=== PATIENT | female | born 1955 | race Caucasian/White ===

== ENCOUNTER 2017-05-28 12:35 | Inpatient (IN) | payer BC ==
[2017-05-28] MEDS ORDERED: NITROGLYCERIN SUBLINGUAL 0.4 MG BOTTLE OF 25. SL (13:45)
[2017-05-28] MEDS: POTASSIUM CHLORIDE 20 MEQ TABLET.ER. PO (14:00)
[2017-05-28] MEDS: LOSARTAN POTASSIUM 50 MG TABLET. PO (14:00)
[2017-05-28] MEDS: hydroCHLOROthiazide 25 MG TABLET PO (14:00)
[2017-05-28 14:54] LABS: ADD MAN DIFF? NO
[2017-05-28 15:04] LABS: BASO # 0.1 x10^3/uL (0.0-0.2); BASO % 1 % (0-3); EOS # 0.2 x10^3/uL (0.0-0.7); EOS % 2 % (0-3); HEMATOCRIT 32.2 % (36.0-47.0); LYMPH # 1.8 x10^3/uL (1.0-4.8); LYMPH % 24 % (24-48); MEAN CORPUSCULAR HEMOGLOBIN 29 pg (25-35); MEAN CORPUSCULAR HGB CONC 34 g/dL (31-37); MEAN CORPUSCULAR VOLUME 84 fL (79-100); MONO # 0.5 x10^3/uL (0.0-1.1); MONO % 7 % (0-9); NEUT % 66 % (31-73); PLATELET COUNT 221 x10^3/uL (140-400); RED BLOOD COUNT 3.83 x10^6/uL (3.50-5.40); RED CELL DISTRIBUTION WIDTH 13.7 % (11.5-14.5); WHITE BLOOD COUNT 7.6 x10^3/uL (4.0-11.0)
[2017-05-28 15:14] LABS: TROPONINI < 0.017 ng/mL (0.000-0.055)
[2017-05-28 15:20] LABS: ANION GAP 12 (6-14); BLOOD UREA NITROGEN 27 mg/dL (7-20); CARBON DIOXIDE 26 mmol/L (21-32); CHLORIDE 103 mmol/L (98-107); CREATININE 1.3 mg/dL (0.6-1.0); GFR 41.5; GLUCOSE 98 mg/dL (70-99); POTASSIUM 4.1 mmol/L (3.5-5.1); SODIUM 141 mmol/L (136-145)
[2017-05-28] MEDS ORDERED: NON FORMULARY ITEM (Sitagliptin Phos/Metformin Hcl (Janumet 50-1,000 Mg Tablet) 1 EACH) PO (16:30)
[2017-05-28] MEDS: ASPIRIN CHEWABLE 81 MG TABLET. PO (17:35)
[2017-05-28] MEDS: LINAGLIPTIN 5 MG TABLET PO (17:35)
[2017-05-28] MEDS: VERAPAMIL IV (17:35)
[2017-05-28 19:25] LABS: TROPONINI < 0.017 ng/mL (0.000-0.055)
[2017-05-28 20:23] LABS: BILIRUBIN,URINE NEGATIVE (NEG); CLARITY,URINE CLEAR; COLOR,URINE YELLOW; GLUCOSE,URINE NEGATIVE (NEG); NITRITE,URINE NEGATIVE (NEG); PROTEIN,URINE NEGATIVE (NEG-TRACE); UROBILINOGEN,URINE 0.2 mg/dL (0.2 mg/dL)
[2017-05-28 20:26] LABS: BACTERIA,URINE 0 /HPF (0-FEW); RBC,URINE 0 /HPF (0-2); SQUAMOUS EPITHELIAL CELL,UR FEW /LPF; WBC,URINE OCC /HPF (0-4)
[2017-05-28] MEDS: FENOFIBRATE,MICRONIZED 134 MG CAPSULE PO (20:39)
[2017-05-28] MEDS: DULoxetine HCL 30 MG CAPSULE.DR PO (20:39)
[2017-05-28] MEDS: GABAPENTIN 300 MG CAPSULE. PO (20:40)
[2017-05-28] MEDS: METOPROLOL TART IMMED RELEASE 50 MG TABLET. PO (20:40)
[2017-05-28 22:35] LABS: TROPONINI < 0.017 ng/mL (0.000-0.055)
[2017-05-29] MEDS: METOPROLOL TART IMMED RELEASE 50 MG TABLET. PO (09:00)
[2017-05-29] MEDS: GABAPENTIN 300 MG CAPSULE. PO (09:00)
[2017-05-29] MEDS: hydroCHLOROthiazide 25 MG TABLET PO ×2 (09:01→15:46)
[2017-05-29] MEDS: POTASSIUM CHLORIDE 20 MEQ TABLET.ER. PO (09:01)
[2017-05-29] MEDS: LOSARTAN POTASSIUM 50 MG TABLET. PO (09:01)
[2017-05-29] MEDS: ASPIRIN CHEWABLE 81 MG TABLET. PO (09:01)
[2017-05-29] MEDS: LINAGLIPTIN 5 MG TABLET PO ×2 (09:03→15:46)
[2017-05-29] MEDS ORDERED: IODIXANOL 320 MG/ML 100 ML VIAL. (12:45)
[2017-05-29] MEDS ORDERED: HEPARIN for ARTERIAL LINE 1,500 ML (12:46)
[2017-05-29] MEDS ORDERED: LIDOCAINE 1% Multi-Dose 20 ML VIAL. (12:46)
[2017-05-29] MEDS ORDERED: fentaNYL PF VIAL 100 MCG/2 ML VIAL (13:04)
[2017-05-29] MEDS ORDERED: MIDAZOLAM HCL/PF 2 MG/2 ML VIAL. (13:05)
[2017-05-29] MEDS ORDERED: VERAPAMIL 5 MG/2 ML VIAL. (13:17)
[2017-05-29] MEDS ORDERED: HEPARIN for IV BOLUS 10,000 UNIT/10 ML VIAL. (13:17)
[2017-05-29] MEDS ORDERED: CONTRAST GIVEN MC (13:30)
[2017-05-29] MEDS: LIDOCAINE 1% PF 2 ML VIAL. INJ (13:30)
[2017-05-29] MEDS: NITROGLYCERIN 200 MCG/2 ML SYRINGE FOR CATH/VASC LAB. IART (13:33)
[2017-05-29] MEDS: IODIXANOL 320 MG/ML 100 ML VIAL. IART (13:33)
[2017-05-29] MEDS: VERAPAMIL 5 MG/2 ML VIAL. IART (13:34)
[2017-05-29] MEDS: fentaNYL PF VIAL 100 MCG/2 ML VIAL IV (13:36)
[2017-05-29] MEDS: MIDAZOLAM HCL/PF 2 MG/2 ML VIAL. IV (13:37)
[2017-05-29] MEDS: HEPARIN for IV BOLUS 10,000 UNIT/10 ML VIAL. IART (13:37)
[2017-05-29] MEDS: ACETAMINOPHEN 325 MG TABLET. PO (16:13)
== END 2017-05-29 18:45 | disposition home or self-care (01) | DRG 287 ==
LOC: 2 SOUTH 12:35
PROC: 4A023N7 Measurement of Cardiac Sampling and Pressure, Left Heart, Percutaneous Approach (ICD-10-PCS; principal; 2017-05-28)
PROC: B2151ZZ Fluoroscopy of Left Heart using Low Osmolar Contrast (ICD-10-PCS; 2017-05-28)
PROC: B2111ZZ Fluoroscopy of Multiple Coronary Arteries using Low Osmolar Contrast (ICD-10-PCS; 2017-05-28)
DX: R07.9 Chest pain, unspecified (principal); E11.9 Type 2 diabetes mellitus without complications; E66.9 Obesity, unspecified; G47.33 Obstructive sleep apnea (adult) (pediatric); I10 Essential (primary) hypertension; M19.90 Unspecified osteoarthritis, unspecified site; Z68.37 Body mass index [BMI] 37.0-37.9, adult; Z88.2 Allergy status to sulfonamides; Z88.8 Allergy status to other drugs, medicaments and biological substances; Z82.49 Family history of ischemic heart disease and other diseases of the circulatory system
CPT/HCPCS: 36415; 80048; 81001; 84484; 85025; 93005; 93306; 93458; 99152; 99153; C1769; C1892; J1644; J2250; J3010; J3490

== ENCOUNTER 2019-12-20 08:58 | Emergency (ER) | payer MEDICARE ==
[~2019-12-20] VITALS: Ht 167.6 cm; Wt 105.0 kg
[~2019-12-20 08:58] MED LIST: BYSTOLIC10 MG PO; CYCL10TA2 PO; DICL75TA PO; DILT180C29 PO; DULO60CA6 PO; ESTR0.3T PO; FENO145T3 PO; GABA300C18 PO; HYDR50TA6 PO; LOSA100T14 PO; MULT-246 PO; OXYC1TAB15 PO; POTA20TA12 PO; SITA1TAB11 PO; TERA10CA3 PO; TRAM50TA PO; WARF3TAB50 PO; WARF5TAB2 PO
--- NOTE | 2019-12-20 09:37 | PHYS DOC ---
Past Medical History Smoking Status: Never Smoker General Adult EDM: Chief Complaint: WEAKNESS/GENERALIZED HPI: HPI: The history was obtained from the patient. Patient is a 64-year-old female with PMH hypertension, diabetes who presents with a chief complaint of right posterior neck pain. Patient states 5 days ago she began developing intermittent sharp and shooting right posterior neck pain. States the pain started in the posterior neck and radiate up behind her ear. She states that nothing seems to make the pain worse. She did try hydrocodone at home from her with some relief. She states she did follow-up with her primary care physician twice. She states that basic labs were obtained they were unremarkable. She states that her family physician prescribed doxycycline because he was suspicious this could be infection related. She has been taking this. She states she has felt somewhat of a palpable lump in her posterior right neck. She states that her granddaughter checked the area and thought it looked slightly red. Patient denies any IV drug use history. Denies any MRSA history. Denies any unexplained weight loss. She notes today that her head pain has improved significantly but she has some mild soreness to her right shoulder. Denies any acute vision or hearing changes. Denies any dysarthria or confusion. Denies headache. Denies vomiting. Denies chest pain or shortness of breath. No other complaints. Review of Systems: Review of Systems: Constitutional: Denies fever or chills. [] Eyes: Denies change in visual acuity. [] HENT: Denies nasal congestion or sore throat. [] Respiratory: Denies cough or shortness of breath. [] Cardiovascular: Denies chest pain or edema. [] GI: Denies abdominal pain, nausea, vomiting, bloody stools or diarrhea. [] : Denies dysuria. [] Musculoskeletal: Denies back pain or joint pain. [] Integument: Denies rash. [] Neurologic: Positive for headache and neck pain Endocrine: Denies polyuria or polydipsia. [] Lymphatic: Denies swollen glands. [] Psychiatric: Denies depression or anxiety. [] Heart Score: Risk Factors: Risk Factors: DM, Current or recent (<one month) smoker, HTN, HLP, family history of CAD, obesity. Risk Scores: Score 0 - 3: 2.5% MACE over next 6 weeks - Discharge Home Score 4 - 6: 20.3% MACE over next 6 weeks - Admit for Clinical Observation Score 7 - 10: 72.7% MACE over next 6 weeks - Early Invasive Strategies Allergies: Allergies: Allergies Coded Allergies Type Severity Reaction Last Updated Verified Sulfa (Sulfonamide Antibiotics) Allergy Severe angioedema 12/20/19 Yes codeine Adverse Reaction Severe palpitations 12/20/19 Yes Physical Exam: PE: Constitutional: Well developed, well nourished, no acute distress, non-toxic appearance. [] HENT: Normocephalic, atraumatic, bilateral external ears normal, oropharynx moist, no oral exudates, nose normal. [] Eyes: PERRLA, EOMI, conjunctiva normal, no discharge. [] Neck: Normal range of motion, no tenderness, supple, no stridor. Slightly erythematous patches noted to the posterior neck. 0.5 x 0.5 cm palpable mobile nodule. [] Cardiovascular:Heart rate regular rhythm, no murmur [] Lungs & Thorax: Bilateral breath sounds clear to auscultation [] Abdomen: soft, no tenderness, no masses, no pulsatile masses. [] Skin: Warm, dry, no erythema, no rash. [] Back: No tenderness, no CVA tenderness. [] Extremities: No tenderness, no cyanosis, no clubbing, ROM intact, no edema. [] Neurologic: Alert with intact cognitive function. No aphasia, dysarthria, or neglect. GCS 15. Pupils 3 mm briskly reactive b/l. No APD present. Cranial nerves 2-12 grossly intact; no facial asymmetry present, tongue midline, shoulder shrugging strength intact. Strength 5/5 and symmetric throughout. Light touch sensation intact throughout. Cerebellar testing appropriate without evidence of dysdiadochokinesia. DTR's 2+ in all 4 extremities. Negative pronator drift bilaterally. Gait normal Psychologic: Affect normal, judgement normal, mood normal. [] Current Patient Data: Labs: Laboratory Tests Test 12/20/19 09:42 White Blood Count 6.6 x10^3/uL Red Blood Count 3.77 x10^6/uL Hemoglobin 10.8 g/dL Hematocrit 32.2 % Mean Corpuscular Volume 85 fL Mean Corpuscular Hemoglobin 29 pg Mean Corpuscular Hemoglobin Concent 34 g/dL Red Cell Distribution Width 13.1 % Platelet Count 253 x10^3/uL Neutrophils (%) (Auto) 64 % Lymphocytes (%) (Auto) 24 % Monocytes (%) (Auto) 7 % Eosinophils (%) (Auto) 4 % Basophils (%) (Auto) 1 % Neutrophils # (Auto) 4.2 x10^3/uL Lymphocytes # (Auto) 1.6 x10^3/uL Monocytes # (Auto) 0.5 x10^3/uL Eosinophils # (Auto) 0.3 x10^3/uL Basophils # (Auto) 0.1 x10^3/uL Sodium Level 135 mmol/L Potassium Level 4.3 mmol/L Chloride Level 101 mmol/L Carbon Dioxide Level 28 mmol/L Anion Gap 6 Blood Urea Nitrogen 24 mg/dL Creatinine 1.2 mg/dL Estimated GFR (Cockcroft-Gault) 45.1 Glucose Level 131 mg/dL Calcium Level 8.9 mg/dL Vital Signs: Vital Signs Date Time Temp Pulse Resp B/P (MAP) Pulse Ox O2 Delivery O2 Flow Rate FiO2 12/20/19 09:05 98.3 74 20 176/84 (114) 94 Room Air 98.3 EKG: EKG: [] Radiology/Procedures: Radiology/Procedures: [facility] [address] [place], [place] [id number] IMAGING REPORT Signed PATIENT: MACK ALBERT ACCOUNT: [id number] : 1955 LOCATION: ER AGE: 64 SEX: F EXAM STATUS: REG ER ORD. PHYSICIAN: FRANCES REID DO REASON: R soft tissue clavicular pain PROCEDURE: CHEST AP ONLY AP portable chest 12/20/2019. Reason for exam: Right-sided pain. Comparison is made with a study of 06/07/2015. Some linear scarring or atelectasis is seen in the mid left lung. No new infiltrate or effusion is evident. The heart may be mildly enlarged, but appears unchanged. Pulmonary vascularity is not congested. There is no obvious soft tissue mass or bone destruction. IMPRESSION: No acute cardiopulmonary disease. Electronically signed by: Nick Echeverria Jr., MD (12/20/2019 9:59 AM) [id number] DICTATED and SIGNED BY: NICK ECHEVERRIA Jr, MD DATE: 12/20/19 0959 [] Course & Med Decision Making: Course & Med Decision Making Pertinent Labs and Imaging studies reviewed. (See chart for details) [] Patient is a well-appearing 64-year-old female who presents with chief complaint of right sided neck pain intermittent over the past several days as well as a palpable nodule. Initial vital signs unremarkable. Examination overall reassuring. Firm mobile nodule palpated in the posterior right lateral neck. Mild overlying erythematous skin changes potentially consistent with fol liculitis. Chest x-ray imaging nonacute. Labs been overall unremarkable. Very low suspicion for deep space infection. She is forage motion of her head neck without difficulty. No signs of fever or toxicity. Advanced CT imaging will be deferred. She does state that her symptoms do appear to be improving. I do feel overall is reasonable to discharge patient home with close outpatient follow-up. I encouraged her to continue to take her doxycycline. She will be prescribed Flexeril and lidocaine as her could be a musculoskeletal and soft tissue component to her symptoms. On repeat examination her exam remains unchanged. No focal neurologic deficits appreciated. No audible bruits noted. Return precautions discussed and understood. Patient and both agreeable to this plan. Stable for discharge home. Dragon Disclaimer: Dragon Disclaimer: This electronic medical record was generated, in whole or in part, using a voice recognition dictation system. Departure Departure Impression: Primary Impression: Neck pain Additional Impression: Nodule of neck Disposition: HOME, SELF-CARE Condition: STABLE Referrals: VELVET DIAS MD (PCP) Patient Instructions: General Headache Without Cause Scripts Cyclobenzaprine Hcl (CYCLOBENZAPRINE HCL) 5 Mg Tablet 5 MG PO PRN TID PRN for PAIN for 5 Days, #15 TAB Prov: FRANCES REID DO 12/20/19 Lidocaine (Lido Walt) 1 Each Adh..patch 1 EACH TP DAILY for 5 Days, #5 PATCH 12 hours on and 12 hours off Prov: FRANCES REID DO 12/20/19 Justicifation of Admission Dx: Justifications for Admission: Justification of Admission Dx: N/A FRANCES REID DO Dec 20, 2019 09:37
[2019-12-20 09:50] LABS: BASO # 0.1 x10^3/uL (0.0-0.2); BASO % 1 % (0-3); EOS # 0.3 x10^3/uL (0.0-0.7); EOS % 4 % (0-3); HEMATOCRIT 32.2 % (36.0-47.0); HEMOGLOBIN 10.8 g/dL (12.0-15.5); LYMPH # 1.6 x10^3/uL (1.0-4.8); LYMPH % 24 % (24-48); MEAN CORPUSCULAR HEMOGLOBIN 29 pg (25-35); MEAN CORPUSCULAR HGB CONC 34 g/dL (31-37); MEAN CORPUSCULAR VOLUME 85 fL (79-100); MONO # 0.5 x10^3/uL (0.0-1.1); MONO % 7 % (0-9); NEUT # 4.2 x10^3/uL (1.8-7.7); NEUT % 64 % (31-73); PLATELET COUNT 253 x10^3/uL (140-400); RED BLOOD COUNT 3.77 x10^6/uL (3.50-5.40); RED CELL DISTRIBUTION WIDTH 13.1 % (11.5-14.5); WHITE BLOOD COUNT 6.6 x10^3/uL (4.0-11.0)
--- NOTE | 2019-12-20 10:02 | RAD ---
AP portable chest 12/20/2019. Reason for exam: Right-sided pain. Comparison is made with a study of 06/07/2015. Some linear scarring or atelectasis is seen in the mid left lung. No new infiltrate or effusion is evident. The heart may be mildly enlarged, but appears unchanged. Pulmonary vascularity is not congested. There is no obvious soft tissue mass or bone destruction. IMPRESSION: No acute cardiopulmonary disease. Electronically signed by: Nash Echeverria Jr., MD (12/20/2019 9:59 AM) [id number]
[2019-12-20 10:06] LABS: CALCIUM 8.9 mg/dL (8.5-10.1); CREATININE 1.2 mg/dL (0.6-1.0); GFR 45.1; POTASSIUM 4.3 mmol/L (3.5-5.1)
[2019-12-20 10:16] VITALS: BP 164/80
[2019-12-20] MEDS ORDERED: CYCL5TAB PO (10:34)
[2019-12-20] MEDS ORDERED: LIDO1ADH78 TP (10:34)
== END 2019-12-20 10:36 | disposition home or self-care (01) ==
LOC: ER 08:58
DX: M54.2 Cervicalgia (principal); R22.1 Localized swelling, mass and lump, neck; R51 Headache; Z88.2 Allergy status to sulfonamides; Z88.5 Allergy status to narcotic agent
CPT/HCPCS: 36415; 71045; 80048; 85025; 99284

== ENCOUNTER 2020-12-28 19:48 | Emergency (ER) | payer MEDICARE ==
[~2020-12-28] VITALS: Ht 167.6 cm; Wt 112.0 kg
[~2020-12-28 19:48] MED LIST changes: +CYCL5TAB PO; -DULO60CA6 PO; +DULO60CA7 PO; -HYDR50TA6 PO; +HYDR50TA9 PO; +LIDO1ADH78 TP
[2020-12-28 22:45] VITALS: BP 203/88
--- NOTE | 2020-12-28 22:47 | PHYS DOC ---
Past Medical History Past Medical History: Diabetes-Type II, High Cholesterol, Hypertension, Other Additional Past Medical Histor: DONNY, neuropathy (MARGARITA AGARWAL APRN) Past Surgical History: Hysterectomy, Other Additional Past Surgical Histo: sinus surgery (MARGARITA AGARWAL APRN) Smoking Status: Never Smoker Alcohol Use: Rarely (MARGARITA AGARWAL APRN) General Adult EDM: Chief Complaint: MECHANICAL FALL HPI: HPI: Patient is a 65 year old female who presents after a fall in her front yard this morning. Patient states "I was walking in the yard when I twisted my left ankle". Patient denies taking anything for pain. Patient still has full range of motion. Denies any other injury. (MARGARITA AGARWAL APRN) Review of Systems: Review of Systems: ROS At least 10 ROS systems have been reviewed and are negative except as documented in the HPI. General: Negative except as outlined in HPI above. Skin: Negative except as outlined in HPI above. HEENT: Negative except as outlined in HPI above. Neck: Negative except as outlined in HPI above. Respiratory: Negative except as outlined in HPI above.. Cardiovascular: Negative except as outlined in HPI above. Abdomen: Negative except as outlined in HPI above. : Negative except as outlined in HPI above. Back/MSK: Negative except as outlined in HPI above. Neuro: Negative except as outlined in HPI above. Psych: Negative except as outlined in HPI above. (MARGARITA AGARWAL APRN) Heart Score: C/O Chest Pain: No Risk Factors: Risk Factors: DM, Current or recent (<one month) smoker, HTN, HLP, family history of CAD, obesity. Risk Scores: Score 0 - 3: 2.5% MACE over next 6 weeks - Discharge Home Score 4 - 6: 20.3% MACE over next 6 weeks - Admit for Clinical Observation Score 7 - 10: 72.7% MACE over next 6 weeks - Early Invasive Strategies (MARGARITA AGARWAL APRN) Allergies: Allergies: Allergies Coded Allergies Type Severity Reaction Last Updated Verified Sulfa (Sulfonamide Antibiotics) Allergy Severe angioedema 12/20/19 Yes codeine Adverse Reaction Severe palpitations 12/20/19 Yes (MARGARITA AGARWAL APRN) Physical Exam: PE: Constitutional: Well developed, well nourished, no acute distress, non-toxic appearance. [] HENT: Normocephalic, atraumatic, bilateral external ears normal, oropharynx moist, no oral exudates, nose normal. [] Eyes: PERRLA, EOMI, conjunctiva normal, no discharge. [] Neck: Normal range of motion, no tenderness, supple, no stridor. [] Cardiovascular:Heart rate regular rhythm, no murmur [] Lungs & Thorax: Bilateral breath sounds clear to auscultation [] Abdomen: Bowel sounds normal, soft, no tenderness, no masses, no pulsatile masses. [] Skin: Warm, dry, no erythema, no rash. [] Back: No tenderness, no CVA tenderness. [] Extremities: Left ankle tenderness, ROM intact, swelling Neurologic: Alert and oriented X 3, normal motor function, normal sensory function, no focal deficits noted. [] Psychologic: Affect normal, judgement normal, mood normal. [] (MARGARITA AGARWAL APRN) Current Patient Data: Vital Signs: Vital Signs Date Time Temp Pulse Resp B/P (MAP) Pulse Ox O2 Delivery O2 Flow Rate FiO2 12/28/20 22:45 99.1 75 16 203/88 (126) 97 Room Air 99.1 (MOODY OLGUIN DO) EKG: EKG: [] (MARGARITA AGARWAL APRN) Radiology/Procedures: Radiology/Procedures: []Three-view left foot and three-view left ankle dated 12/28/2020. No comparison available. CLINICAL INDICATION: Pain after injury. FINDINGS: 3 views left foot show normal bony alignment. No displaced fracture. No periostitis or bone destruction. No acute osseous or articular abnormality. Moderate degenerative change of the first MTP joint. Prominent plantar spur. 3 views of left ankle show normal bony alignment. No displaced fracture. The talar dome is intact. There is mild diffuse soft tissue swelling. No acute osseous or articular abnormality. IMPRESSION: No acute findings. Electronically signed by: Tre Pereira MD (12/28/2020 11:36 PM) NIKKI (MARGARITA AGARWAL APRN) Course & Med Decision Making: Course & Med Decision Making Pertinent Labs and Imaging studies reviewed. (See chart for details) [] 65-year-old female presents after twisting her left ankle. Patient has full range of motion. Pedal pulses intact. X-ray of the left ankle and foot ordered to rule out fracture. Blood pressure slightly elevated. Patient advised to take her blood pressure medicine at home. Patient should call her PCP in the morning to make a follow-up appointment to discuss further management of blood pressure. Left ankle and foot x-ray are negative for fracture. Discussed results with patient. Advised patient to take ibuprofen and Tylenol for pain. Rice instructions given. (MARGARITA AGARWAL APRN) Course & Med Decision Making I have reviewed and was available for consultation in the emergency department for this patient that was seen by midlevel provider. Agree with plan. Patient was counseled blood pressure by PRISCILLA prior to discharge, she has her medications at home but cannot recall the name of them, states she will take at home, will follow up with PCP for blood pressure recheck. Moody Olguin DO (MOODY OLGUIN DO) Reji Disclaimer: Reji Disclaimer: This electronic medical record was generated, in whole or in part, using a voice recognition dictation system. (MARGARITA AGARWAL APRN) Departure Departure Impression: Primary Impression: Ankle sprain Qualified Codes: S93.402A - Sprain of unspecified ligament of left ankle, initial encounter Disposition: HOME / SELF CARE / HOMELESS Condition: STABLE Referrals: VELVET DIAS MD (PCP) Patient Instructions: Ankle Sprain, [id number], RICE - Routine Care for Injuries Additional Instructions: You were seen in the emergency room for left ankle pain. X-ray was negative for fracture. You can take ibuprofen and Tylenol at home for discomfort. Rest, use ice, use Anselmo wrap, elevate to help with swelling and pain. If pain continues follow-up with PCP in 1 week. EMERGENCY DEPARTMENT GENERAL DISCHARGE INSTRUCTIONS Thank you for coming to [facility] Emergency Department (ED) today and trusting us with you care. We trust that you had a positive experience in our Emergency Department. If you wish to speak to the department management, you may call the Director at [phone]. YOUR FOLLOW UP INSTRUCTIONS ARE FOLLOWS: 1. Do you have a private Doctor? If you do not have a private doctor, please ask for a resource list of physicians or clinics that may be able to assist you with follow up care. 2. The Emergency Physicain has interpreted your x-rays. The X-Ray specialist will also review them. If there is a change in the findings, you will be notified in 48 hours when at all possible. 3. A lab test or culture has been done, your results will be reviewed and you will be notified if you need a change in treatment. ADDITIONAL INSTRUCTIONS AND INFORMATION: 1. Your care today has been supervised by a physician who is specially trained in emergency care. Many problems require more than one evaluation for a complete diagnosis and treatment. We recommend that you schedule your follow up appointment as recommended to ensure complete treatment of you illness or injury. If you are unable to obtain follow up care and continue to have a problem, or if your condition worsens, we recommend that you return to the ED. 2. We are not able to safely determine your condition over the phone nor are we able to give sound medical advice over the phone. For these safety reasons, if you call for medical advice we will ask you to come to the ED for further evaluation. 3. If you have any questions regarding these discharge instructions please call the ED at [phone]. SAFETY INFORMATION: In the interest of safety, wellness, and injury prevention; we encourage you to wear your sealbelt, if you smoke; quite smoking, and we encourage family to use a protective helmet for bicycling and other sporting events that present an increased risk for head injury. IF YOUR SYMPTOMS WORSEN OR NEW SYMPTOMS DEVELOP, OR YOU HAVE CONCERNS ABOUT YOUR CONDITION; OR IF YOUR CONDITION WORSENS WHILE YOU ARE WAITING FOR YOUR FOLLOW UP APPOINTMENT; EITHER CONTACT YOUR PRIMARY CARE DOCTOR, THE PHYSICIAN WHOSE NAME AND NUMBER YOU WERE GIVEN, OR RETURN TO THE ED IMMEDIATELY. MARGARITA AGARWAL APRN Dec 28, 2020 22:47 MOODY OLGUIN DO Dec 29, 2020 01:23
--- NOTE | 2020-12-28 23:39 | RAD ---
Three-view left foot and three-view left ankle dated 12/28/2020. No comparison available. CLINICAL INDICATION: Pain after injury. FINDINGS: 3 views left foot show normal bony alignment. No displaced fracture. No periostitis or bone destructi on. No acute osseous or articular abnormality. Moderate degenerative change of the first MTP joint. P rominent plantar spur. 3 views of left ankle show normal bony alignment. No displaced fracture. The talar dome is intact. Th ere is mild diffuse soft tissue swelling. No acute osseous or articular abnormality. IMPRESSION: No acute findings. Electronically signed by: Tre Pereira MD (12/28/2020 11:36 PM) [place]
== END 2020-12-29 00:15 | disposition home or self-care (01) ==
LOC: ER 19:48
DX: S93.402A Sprain of unspecified ligament of left ankle, initial encounter (principal); E78.00 Pure hypercholesterolemia, unspecified; E11.40 Type 2 diabetes mellitus with diabetic neuropathy, unspecified; I10 Essential (primary) hypertension; Z90.710 Acquired absence of both cervix and uterus; W18.39XA Other fall on same level, initial encounter; Y93.01 Activity, walking, marching and hiking; Y92.89 Other specified places as the place of occurrence of the external cause; Y99.8 Other external cause status
CPT/HCPCS: 73610; 73630; 99284